=== PATIENT | male | born 1990 | race Caucasian/White ===

== ENCOUNTER 2017-12-16 02:36 | Emergency (ER) | payer OTHER ==
[2017-12-16] MEDS ORDERED: LIDOCAINE 1% MPF 5 ML VIAL ONE (04:08)
[2017-12-16] MEDS ORDERED: HYDROCODONE/APAP 7.5/325 MG TAB ONE (04:10)
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
--- NOTE | 2017-12-16 04:16 | EDPHYS ---
Physician Documentation [facility] Name: Baltazar Winston Age: 27 yrs Sex: Male : 1990 Arrival Date: 12/16/2017 Time: 02:41 Bed 15 Private MD: ED Physician Jayson Antoine HPI: 12/16 03:26 This 27 yrs old Male presents to ER via Ambulatory with complaints of pkl Infected finger. 03:26 The patient or guardian reports pain, swelling. The complaints affect the distal left pkl index finger. Context: Patient uncertain what cause the pain and swelling in the left index finger. Onset: The symptoms/episode began/occurred 1 week(s) ago. 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 - Social history:: Smoking status: Patient uses tobacco products, smokes two packs cigarettes per day. ROS: 03:26 Eyes: Negative for injury, pain, redness, and discharge, ENT: Negative for injury, pkl pain, and discharge, Neck: Negative for injury, pain, and swelling, Cardiovascular: Negative for chest pain, palpitations, and edema, Respiratory: Negative for shortness of breath, cough, wheezing, and pleuritic chest pain, Abdomen/GI: Negative for abdominal pain, nausea, vomiting, diarrhea, and constipation, Back: Negative for injury and pain, : Negative for injury, bleeding, discharge, and swelling, Neuro: Negative for headache, weakness, numbness, tingling, and seizure. 03:26 MS/extremity: Positive for pain, swelling, of the distal left index finger. Exam: 03:26 Head/Face: Normocephalic, atraumatic. Eyes: Pupils equal round and reactive to light, pkl extra-ocular motions intact. Lids and lashes normal. Conjunctiva and sclera are non-icteric and not injected. Cornea within normal limits. Periorbital areas with no swelling, redness, or edema. ENT: Nares patent. No nasal discharge, no septal abnormalities noted. Tympanic membranes are normal and external auditory canals are clear. Oropharynx with no redness, swelling, or masses, exudates, or evidence of obstruction, uvula midline. Mucous membranes moist. Neck: Trachea midline, no thyromegaly or masses palpated, and no cervical lymphadenopathy. Supple, full range of motion without nuchal rigidity, or vertebral point tenderness. No Meningismus. Chest/axilla: Normal chest wall appearance and motion. Nontender with no deformity. No lesions are appreciated. Cardiovascular: Regular rate and rhythm with a normal S1 and S2. No gallops, murmurs, or rubs. Normal PMI, no JVD. No pulse deficits. Respiratory: Lungs have equal breath sounds bilaterally, clear to auscultation and percussion. No rales, rhonchi or wheezes noted. No increased work of breathing, no retractions or nasal flaring. Abdomen/GI: Soft, non-tender, with normal bowel sounds. No distension or tympany. No guarding or rebound. No evidence of tenderness throughout. Back: No spinal tenderness. No costovertebral tenderness. Full range of motion. Neuro: Awake and alert, GCS 15, oriented to person, place, time, and situation. Cranial nerves II-XII grossly intact. Motor strength 5/5 in all extremities. Sensory grossly intact. Cerebellar exam normal. Normal gait. 03:26 Musculoskeletal/extremity: Extremities: grossly normal except: noted in the distal left index finger: Vital Signs: 02:50 BP 147 / 92; Pulse 102; Resp 16; Temp 98.3; Pulse Ox 97% ; Weight 99.79 kg; Height 5 aa1 ft. 9 in. (175.26 cm); Pain 7/10; 03:52 BP 135 / 73; Pulse 92; Resp 16; Pulse Ox 100% ; aa1 04:43 BP 141 / 70; Pulse 89; Resp 16; Pulse Ox 100% on R/A; aa1 02:50 Body Mass Index 32.49 (99.79 kg, 175.26 cm) aa1 Procedures: 04:10 I \T\ D: Incision and drainage was performed for an abscess of the left Prepped with pkl Betadine, Anesthetized with 3 ml's 1% Lidocaine. Incised with #11 blade. Drained small amount purulent fluid. Dressing: Tube gauze the patient tolerated the procedure well. MDM: 02:48 Patient medically screened. pk 04:10 Data reviewed: vital signs, nurses notes, radiologic studies, plain films. pkl 04:10 ED course: Patient does not want to be admitted for IV antibiotic. Will follow up with [facility] in 1 to 2 days after I and D in ER. 12/16 04:13 Order name: Wound Culture em1 12/16 03:00 Order name: Hand Left 3 View XRAY pkl Administered Medications: 03:51 Drug: [place]am (7.5 mg-325 mg) 1 tabs Route: PO; aa1 04:29 Follow up: Response: No adverse reaction; Pain is decreased aa1 04:28 Drug: Ancef 1 grams {Note: administered by Alexandra Henry, student nurse.} Route: aa1 IM; Site: left deltoid; 04:42 Follow up: Response: No adverse reaction; Medication administered at discharge. aa1 Disposition: 12/16/17 04:15 Discharged to Home. Impression: Abscess left index finger. - Condition is Stable. - Prescriptions for Keflex 500 mg Oral Capsule - take 1 capsule by ORAL route every 6 hours for 7 days; 28 capsule. Tylenol- Codeine #3 300-30 mg Oral Tablet - take 1 tablet by ORAL route every 6 hours As needed; 20 tablet. - Medication Reconciliation Form, Thank You Letter, Antibiotic Education, Prescription Opioid Use form. - Follow up: Scooter Alarcon MD; When: 1 - 2 days; Reason: Re-evaluation by your physician. Signatures: Dispatcher [employer] Lauren Urbano RN RN aa1 Jayson Antoine MD MD pkl
[2017-12-16] MEDS ORDERED: CEFAZOLIN SODIUM 1 GM/VIAL ONE (04:39)
[2017-12-16 04:50] VITALS: TEMP 98.3
[2017-12-16 04:51] VITALS: O2SAT 100
[2017-12-16 04:52] VITALS: BP 141/70
--- NOTE | 2017-12-16 08:36 | RAD REPORT ---
EXAM DESCRIPTION: RAD - Hand Left 3 View - 12/16/2017 6:50 am CLINICAL HISTORY: Pain, soft tissue swelling COMPARISON: None. FINDINGS: No fracture, dislocation or periosteal reaction noted. No acute or destructive bone proces s seen. There is prominent soft tissue swelling of the second digit. No air or foreign body seen with in the soft tissues. IMPRESSION: Prominent second digit soft tissue swelling with no air or foreign body. No acute bone or joint finding.
== END 2017-12-16 04:46 | disposition home or self-care (01) ==
LOC: ER 02:36
PROC: 0H9GXZZ Drainage of Left Hand Skin, External Approach (ICD-10-PCS; principal; 2017-12-16)
DX: L02.512 Cutaneous abscess of left hand (principal); F17.210 Nicotine dependence, cigarettes, uncomplicated
CPT/HCPCS: 87070; 87077; 87186; 87205; 96372; 99284; J0690

== ENCOUNTER 2017-12-22 13:29 | Emergency (ER) | payer OTHER ==
[2017-12-22] MEDS ORDERED: NA CHLORIDE 0.9% 1,000 ML ONE (14:45)
[2017-12-22] MEDS ORDERED: AMPICILLIN/SULBACTAM 3GM/VIAL ONE (14:46)
[2017-12-22] MEDS ORDERED: VANCOMYCIN 1 GM/VIAL ONE (14:46)
--- NOTE | 2017-12-22 14:58 | RAD REPORT ---
EXAM DESCRIPTION: RAD -Hand Left 3 View - 12/22/2017 2:44 pm CLINICAL HISTORY: Left hand pain status post injury FINDINGS: No fracture or dislocation is seen. The bones are osteoporotic
[2017-12-22 15:01] LABS: Absolute Lymphocytes (CBC) 1.8 K/uL (0.7-4.9); Absolute Monocytes 0.8 K/uL (0.1-1.3); Absolute Neutrophil 12.1 K/uL (1.8-8.0); Basophils % 0.3 % (0-1.3); Eosinophils % 1.9 % (0-4.4); Hematocrit 41.2 % (39.6-49.0); Lymphocytes % 11.7 % (15.3-44.8); MCH 25.1 pg (27.0-35.0); MPV 8.6 fL (7.6-11.3); Monocytes % 5.6 % (3.3-12.3); RBC Red Blood Cell Count 5.29 M/uL (4.33-5.43)
[2017-12-22 15:14] LABS: Bicarbonate 28 mEq/L (21-31); Glucose Level 99 mg/dL (65-120); Potassium 3.8 mEq/L (3.6-5.0); Sodium Level 138 mEq/L (135-145)
[2017-12-22 15:18] LABS: BUN Blood Urea Nitrogen 8 mg/dL (6-20); Creatine Phosphokinase 39 IU/L (22-269)
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
[2017-12-22 16:20] VITALS: TEMP 98.4
[2017-12-22 16:22] VITALS: BP 148/93; O2SAT 98
== END 2017-12-22 16:16 | disposition short-term general hospital (02) ==
LOC: ER 13:29
DX: L03.114 Cellulitis of left upper limb (principal); F17.210 Nicotine dependence, cigarettes, uncomplicated
CPT/HCPCS: 36415; 80048; 82550; 83605; 84145; 85025; 85652; 87040; 96361; 96365; 96366; 96374; 96375; 99285; J0295; J7030

== ENCOUNTER 2023-05-21 16:02 | Emergency (ER) | payer OTHER ==
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
[2023-05-21] MEDS ORDERED: NA CHLORIDE 0.9% 2,000 ML ONE (17:11)
[2023-05-21] MEDS ORDERED: HYDROMORPHONE HCL 1 MG/ML INJ ONE ×4 (17:11→23:09)
[2023-05-21 17:22] LABS: Absolute Lymphocytes (CBC) 2.5 K/uL (0.7-4.9); Hematocrit 35.7 % (39.6-49.0); MCV 79.7 fL (80-100); MPV 7.8 fL (7.6-11.3); Platelets 276 thou/uL (152-406); Protime INR 1.07; RBC Red Blood Cell Count 4.48 M/uL (4.33-5.43)
[2023-05-21 17:37] LABS: Potassium 3.3 mEq/L (3.5-5.1)
--- NOTE | 2023-05-21 18:07 | RAD REPORT ---
EXAM DESCRIPTION: RAD - Pelvis - 05/21/2023 5:56 pm CLINICAL HISTORY: right femur pain COMPARISON: Pelvis dated 04/12/2017 FINDINGS: Intratrochanteric fracture the proximal right femur is seen. No dislocation.
--- NOTE | 2023-05-21 18:07 | RAD REPORT ---
EXAM DESCRIPTION: RAD - Femur Right - 05/21/2023 5:56 pm CLINICAL HISTORY: deformity;Pain COMPARISON: Femur Right dated 11/22/2014 FINDINGS: Intratrochanteric fracture of the proximal right femur is seen. No dislocation evident. Pr ominent osteopenia.
[2023-05-21] MEDS ORDERED: POTASSIUM 25 MEQ EFFERV TAB ONE (19:30)
--- NOTE | 2023-05-21 19:42 | ER ---
Nurse's Notes [facility] Name: Baltazar Winston Age: 33 yrs Sex: Male : 1990 Arrival Date: 05/21/2023 Time: 16:02 Bed 17 Private MD: Diagnosis: Intertrochanteric fracture of femur-right Presentation: 05/21 16:41 Chief complaint: EMS states: pt fell onto his right hip while walking his dog this kc6 afternoon. denies LOC. 100mcg of Fentanyl given en route. Coronavirus screen: At this time, the client does not indicate any symptoms associated with coronavirus-19. Ebola Screen: No symptoms or risks identified at this time. Initial Sepsis Screen: Does the patient meet any 2 criteria? No. Patient's initial sepsis screen is negative. Does the patient have a suspected source of infection? No. Patient's initial sepsis screen is negative. Risk Assessment: Do you want to hurt yourself or someone else? Patient reports no desire to harm self or others. Onset of symptoms was May 21, 2023. 16:41 Method Of Arrival: EMS: [place] [id number] 16:41 Acuity: ZAYDA 3 kc6 Triage Assessment: 16:43 General: Appears in no apparent distress. uncomfortable, unkempt, Behavior is calm, kc6 cooperative, appropriate for age, crying. Pain: Complains of pain in right leg, right hip Pain does not radiate. Pain currently is 9 out of 10 on a pain scale. EENT: No signs and/or symptoms were reported regarding the EENT system. Neuro: Level of Consciousness is awake, alert, obeys commands, Oriented to person, place, time, situation, Appropriate for age. Cardiovascular: Capillary refill < 3 seconds. Respiratory: Airway is patent Trachea midline Respiratory effort is even, unlabored, Respiratory pattern is regular, symmetrical. GI: No signs and/or symptoms were reported involving the gastrointestinal system. : No signs and/or symptoms were reported regarding the genitourinary system. Derm: No signs and/or symptoms reported regarding the dermatologic system. Skin is intact, is healthy with good turgor, Skin is pink, warm \T\ dry. Musculoskeletal: Capillary refill < 3 seconds, Range of motion: limited in right hip. Historical: - Allergies: 16:43 No Known Allergies; kc6 - PMHx: 16:43 osteogenesis imperfecta; kc6 - PSHx: 16:43 None; kc6 - Immunization history:: Adult Immunizations not up to date. - Social history:: Smoking status: Patient reports the use of cigarette tobacco products, smokes one pack cigarettes per day. Patient/guardian denies using street drugs. Screenin:45 [facility] ED Fall Risk Assessment (Adult) History of falling in the last 3 months, kc6 including since admission Yes- single mechanical fall (1 pt) Confusion or Disorientation No (0 pts) Intoxicated or Sedated No (0 pts) Impaired Gait Yes (1 pt) Mobility Assist Device Used No (0 pt) Altered Elimination No (0 pt) Score/Fall Risk Level 0 - 2 = Low Risk. Abuse screen: Denies threats or abuse. Denies injuries from another. Nutritional screening: No deficits noted. Tuberculosis screening: No symptoms or risk factors identified. Assessment: 16:45 Reassessment: please see triage assessment. kc6 17:40 Reassessment: Patient appears in no apparent distress at this time. No changes from 6 previously documented assessment. Patient and/or family updated on plan of care and expected duration. Pain level reassessed. Patient is alert, oriented x 3, equal unlabored respirations, skin warm/dry/pink. 17:45 Reassessment: Patient appears in no apparent distress at this time. No changes from kc6 previously documented assessment. Patient and/or family updated on plan of care and expected duration. Pain level reassessed. Patient is alert, oriented x 3, equal unlabored respirations, skin warm/dry/pink. 18:45 Reassessment: Patient appears in no apparent distress at this time. No changes from kc6 previously documented assessment. Patient and/or family updated on plan of care and expected duration. Pain level reassessed. Patient is alert, oriented x 3, equal unlabored respirations, skin warm/dry/pink. 19:45 Reassessment: PT RETURNED FROM CT. TRAUMAGRAM RESULTS PENDING. bp 21:21 Reassessment: REPORT TO [facility] ER. TRANSPORT PENDING. bp 23:07 Reassessment: PT SHANICE WITH EMS. bp Vital Signs: 16:41 BP 152 / 85; Pulse 83; Resp 18 S; Temp 98(O); Pulse Ox 98% on R/A; Weight 99.79 kg (R); kc6 Height 5 ft. 9 in. (R); Pain 9/10; 17:41 BP 132 / 78; Pulse 94; Resp 16 S; Pulse Ox 97% on 2 lpm NC; kc6 18:16 BP 135 / 78; Pulse 90; Resp 17 S; Pulse Ox 100% on 2 lpm NC; kc6 19:45 BP 122 / 88; Pulse 65; Resp 16; Pulse Ox 100% ; bp 21:21 BP 133 / 80; Pulse 66; Resp 16; Pulse Ox 96% ; bp 22:55 BP 122 / 69; Pulse 71; Resp 16; Pulse Ox 100% ; bp 16:41 Body Mass Index 32.49 (99.79 kg, 175.26 cm) kc6 16:41 Pain Scale: Adult kc6 ED Course: 16:32 Patient arrived in ED. kc6 16:32 Earl North PA is PHCP. cp 16:32 Brianna Mosley MD is Attending Physician. cp 16:41 Paige Graham RN is Primary Nurse. kc6 16:43 Triage completed. kc6 16:43 Arm band placed on. kc6 16:44 Maintain EMS IV. Dressing intact. Good blood return noted. Site clean \T\ dry. Gauge \T\ nate 6 site: 18G R Hand. 16:45 Patient has correct armband on for positive identification. Bed in low position. Call kc6 light in reach. Side rails up X2. 17:58 XRAY Femur RIGHT In Process Unspecified. EDMS 17:58 XRAY Pelvis In Process Unspecified. EDMS 18:46 Inserted saline lock: 20 gauge in left antecubital area, using aseptic technique. kc6 19:05 Report given to Quinton Martinez RN. kc6 19:07 Primary Nurse role handed off by Paige Graham RN bp 19:07 Quinton Martinez, LEEANNA is Primary Nurse. bp 19:19 CT Traumagram (Head C Spine CAP W Con) In Process Unspecified. EDMS 20:25 PHCP role handed off by Earl North PA cp 20:25 Erin Savage FNP-C is PHCP. cp 21:22 No provider procedures requiring assistance completed. Patient transferred, IV remains bp in place. Administered Medications: 17:11 Drug: HYDROmorphone IVP 1 mg Route: IVP; Site: right hand; kc6 17:29 Follow up: Response: No adverse reaction; Pain is unchanged, physician notified; RASS: kc6 Drowsy (-1) 17:11 Drug: NS 0.9% IV 1000 ml Route: IV; Rate: 1 bolus; Site: right hand; kc6 17:11 Drug: NS 0.9% IV 1000 ml Route: IV; Rate: 1 bolus; Site: right hand; kc6 23:06 Follow up: IV Status: Completed infusion; IV Intake: 1000ml bp 17:28 Drug: HYDROmorphone IVP 1 mg Route: IVP; Site: right hand; kc6 18:17 Follow up: Response: No adverse reaction; Pain is decreased; RASS: Drowsy (-1) kc6 19:28 Drug: Potassium PO Effervescent Tablet 50 mEq Route: PO; bp 23:06 Follow up: Response: No adverse reaction bp 19:42 Drug: HYDROmorphone IVP 1 mg Route: IVP; Site: right hand; bp 23:07 Follow up: Response: No adverse reaction bp 23:06 Drug: HYDROmorphone IVP 1 mg Route: IVP; Site: right hand; bp 23:07 Follow up: Response: No adverse reaction bp Medication: 22:55 VIS not applicable for this client. bp Intake: 23:06 IV: 1000ml; Total: 1000ml. bp Outcome: 19:41 ER care complete, transfer ordered by . cp 21:22 Transferred by ground EMS to [facility], Transfer form completed. bp 21:22 Condition: stable 21:22 Instructed on the need for transfer. 23:07 Patient left the ED. bp Signatures: Dispatcher [employer] EDMS Earl North PA PA cp Peltier, Brian, RN RN bp Paige Graham RN RN kc6
--- NOTE | 2023-05-21 19:42 | EDPHYS ---
Physician Documentation [facility] Name: Baltazar Winston Age: 33 yrs Sex: Male : 1990 Arrival Date: 05/21/2023 Time: 16:02 Bed 17 Private MD: ED Physician Brianna Mosley HPI: 05/21 17:00 This 33 yrs old Male presents to ER via EMS with complaints of Fall Injury, Hip Pain. cp 17:00 Details of fall: The patient fell from an upright position, while walking. 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 - Social history:: Smoking status: Patient reports the use of cigarette tobacco products, smokes one pack cigarettes per day. Patient/guardian denies using street drugs. ROS: 17:05 Cardiovascular: Negative for palpitations. cp 17:05 Constitutional: Negative for body aches, chills, fever, poor PO intake. cp 17:05 Abdomen/GI: Negative for abdominal pain, nausea, vomiting, and diarrhea. 17:05 MS/extremity: Positive for injury or acute deformity, decreased range of motion, pain, tenderness, of the right femur. 20:55 Constitutional: Negative for fever, chills, and weight loss. kb Exam: 17:10 Constitutional: The patient appears in no acute distress, alert, awake, non-toxic, well cp developed, well nourished, in obvious pain, unkempt. 17:10 Head/Face: Normocephalic, atraumatic. cp 17:10 Eyes: Periorbital structures: appear normal, Conjunctiva: normal, no exudate, no injection, Sclera: no appreciated abnormality, Lids and lashes: appear normal, bilaterally. 17:10 ENT: External ear(s): are unremarkable, Nose: is normal, Mouth: Lips: moist, Oral mucosa: pink and intact, moist, Posterior pharynx: is normal, airway is patent, no erythema, no exudate. 17:10 Neck: C-spine: vertebral tenderness, is not appreciated, crepitus, is not appreciated. 17:10 Chest/axilla: Inspection: normal, Palpation: is normal, no crepitus, no tenderness. 17:10 Cardiovascular: Rate: normal, Rhythm: regular. 17:10 Respiratory: the patient does not display signs of respiratory distress, Respirations: normal, no use of accessory muscles, no retractions, labored breathing, is not present, Breath sounds: are clear throughout, no decreased breath sounds, no stridor, no wheezing. 17:10 Abdomen/GI: Inspection: abdomen appears normal, Palpation: abdomen is soft and non-tender, in all quadrants. 17:10 Back: pain, that is moderate. 17:10 Musculoskeletal/extremity: Extremities: noted in the right hip: decreased ROM, deformity, pain, ROM: limited passive range of motion due to pain, in the right hip. 17:10 Neuro: Orientation: to person, place \T\ time. Mentation: is normal, Motor: moves all fours, strength is normal. Vital Signs: 16:41 BP 152 / 85; Pulse 83; Resp 18 S; Temp 98(O); Pulse Ox 98% on R/A; Weight 99.79 kg (R); kc6 Height 5 ft. 9 in. (R); Pain 9/10; 17:41 BP 132 / 78; Pulse 94; Resp 16 S; Pulse Ox 97% on 2 lpm NC; kc6 18:16 BP 135 / 78; Pulse 90; Resp 17 S; Pulse Ox 100% on 2 lpm NC; kc6 19:45 BP 122 / 88; Pulse 65; Resp 16; Pulse Ox 100% ; bp 21:21 BP 133 / 80; Pulse 66; Resp 16; Pulse Ox 96% ; bp 22:55 BP 122 / 69; Pulse 71; Resp 16; Pulse Ox 100% ; bp 16:41 Body Mass Index 32.49 (99.79 kg, 175.26 cm) kc6 16:41 Pain Scale: Adult kc6 MDM: 16:35 Patient medically screened. cp 20:55 Data reviewed: vital signs, nurses notes. Counseling: I had a detailed discussion with kb the patient and/or guardian regarding the historical points, exam findings, and any diagnostic results supporting the discharge/admit diagnosis, lab results, radiology results, the need to transfer to another facility. ED course: Pt accepted to [facility] by Dr Carpenter without conference. 05/21 16:48 Order name: Basic Metabolic Panel; Complete Time: 19:16 cp 05/21 19:16 Interpretation: Normal except: K 3.3; CL 108; GLUC 115; CRE 0.61; CA 8.4. 05/21 16:48 Order name: CBC with Diff; Complete Time: 19:16 cp 05/21 19:16 Interpretation: Normal except: WBC 15.40; HGB 11.8; HCT 35.7; MCV 79.7; MCH 26.3; RDW cp 16.2; NEIL% 76.5; NEUT A 11.8. 05/21 16:48 Order name: Type And Screen; Complete Time: 19:16 cp 05/21 16:50 Order name: PT-INR; Complete Time: 19:16 cp 05/21 18:14 Order name: Lactate w/ 2H reflex if indic.; Complete Time: 19:16 kc6 05/21 16:50 Order name: XRAY Femur RIGHT; Complete Time: 19:16 cp 05/21 16:50 Order name: XRAY Pelvis; Complete Time: 19:16 cp 05/21 16:50 Order name: CT Traumagram (Head C Spine CAP W Con); Complete Time: 19:51 cp 05/21 16:48 Order name: Labs collected and sent; Complete Time: 17:11 cp 05/21 16:50 Order name: IV; Complete Time: 16:54 cp 05/21 16:50 Order name: IV; Complete Time: 16:54 cp Administered Medications: 17:11 Drug: HYDROmorphone IVP 1 mg Route: IVP; Site: right hand; kc6 17:29 Follow up: Response: No adverse reaction; Pain is unchanged, physician notified; RASS: kc6 Drowsy (-1) 17:11 Drug: NS 0.9% IV 1000 ml Route: IV; Rate: 1 bolus; Site: right hand; kc6 17:11 Drug: NS 0.9% IV 1000 ml Route: IV; Rate: 1 bolus; Site: right hand; kc6 23:06 Follow up: IV Status: Completed infusion; IV Intake: 1000ml bp 17:28 Drug: HYDROmorphone IVP 1 mg Route: IVP; Site: right hand; kc6 18:17 Follow up: Response: No adverse reaction; Pain is decreased; RASS: Drowsy (-1) kc6 19:28 Drug: Potassium PO Effervescent Tablet 50 mEq Route: PO; bp 23:06 Follow up: Response: No adverse reaction bp 19:42 Drug: HYDROmorphone IVP 1 mg Route: IVP; Site: right hand; bp 23:07 Follow up: Response: No adverse reaction bp 23:06 Drug: HYDROmorphone IVP 1 mg Route: IVP; Site: right hand; bp 23:07 Follow up: Response: No adverse reaction bp Disposition Summary: 05/21/23 19:41 Transfer Ordered Transfer Location: [facility] cp Reason: Higher level of care cp Condition: Stable cp Problem: new cp Symptoms: have improved cp Accepting Physician: Doctor Doty(05/21/23 23:07) bp Diagnosis - Intertrochanteric fracture of femur - right cp Forms: - Medication Reconciliation Form cp - SBAR form cp Signatures: Dispatcher [employer] EDErin Moore FNP-C [employer]-Earl Marin PA PA cp Peltier, Brian, RN RN bp Campbell, Kaitlyn, RN RN kc6 Vinicius Ward MD MD sp4 Corrections: (The following items were deleted from the chart) 19:28 19:16 Roa ordered. cp bp 20:55 19:41 Doctor cp kb 23:07 20:55 Doctor Lalitha jaime bp
--- NOTE | 2023-05-21 19:46 | RAD REPORT ---
EXAM DESCRIPTION: CT - Head C Spine Cap Ricki Hair - 05/21/2023 7:17 pm CLINICAL HISTORY: Trauma, head and neck injury. Chest, abdomen and pelvis pain. fall COMPARISON: No comparisons TECHNIQUE: CT head without contrast. CT cervical spine without contrast with coronal and sagittal reformatted images. CT chest, abdomen and pelvis with IV contrast (approximately 100 mL nonionic IV contrast) with kirby l and sagittal reformatted images of the spine. All CT scans are performed using dose optimization technique as appropriate and may include automated exposure control or mA/KV adjustment according to patient size. FINDINGS: CT HEAD WITHOUT CONTRAST: No intracranial hemorrhage, hydrocephalus or extra-axial fluid collection. No areas of brain edema o r midline shift. The paranasal sinuses and mastoids are clear. The calvarium is intact. CT CERVICAL SPINE WITHOUT CONTRAST: No fracture or subluxation. The prevertebral soft tissues are normal in thickness. CT CHEST, ABDOMEN, PELVIS WITH CONTRAST: Linear atelectasis is present both posterior lung bases.No pneumothorax or pericardial/pleural fluid. No evidence of intra-abdominal visceral injury, free fluid or free air. There is a significant scoliosis of the spine. Intratrochanteric fracture of the proximal right femur is noted. IMPRESSION: Intratrochanteric fracture the proximal right femur.
[2023-05-22 01:04] VITALS: TEMP 98
[2023-05-22 01:09] VITALS: BP 122/69; O2SAT 100
== END 2023-05-21 23:07 | disposition short-term general hospital (02) ==
LOC: ER 16:02
DX: S72.141A Displaced intertrochanteric fracture of right femur, initial encounter for closed fracture (principal); F17.210 Nicotine dependence, cigarettes, uncomplicated
CPT/HCPCS: 96361; 85025; 80048; 36415; 86900; 86850; 85610; 86901; 83605; 70450; 72125; 71260; 74177; 72170; 73552; 96374; 99285; Q9967; J1170 ×4; J7030